=== PATIENT | female | born 1985 | race African-American/Black ===

== ENCOUNTER 2016-05-04 16:11 | Emergency (ER) | payer OTHER ==
[2016-05-04 16:24] VITALS: BP 99/60; PULSE 82; TEMP 98.7; BMI 24.3
[2016-05-04 16:45] LABS: URINE APPEARANCE CLEAR; URINE BILIRUBIN NEGATIVE (NEGATIVE); URINE COLOR LTYELLOW; URINE GLUCOSE (UA) NEGATIVE (NEGATIVE); URINE KETONE NEGATIVE (NEGATIVE); URINE NITRITE NEGATIVE (NEGATIVE); URINE PROTEIN NEGATIVE (NEGATIVE); URINE UROBILINOGEN 2.0 E.U/dl E.U./dl (0.2-1.0)
[2016-05-04 16:49] LABS: URINE BLOOD 1+ (NEGATIVE); URINE LEUK ESTERASE TRACE (NEGATIVE)
[2016-05-04 16:52] LABS: URINE MUCUS RARE; URINE RBC 24 /hpf (0-3); URINE WBC 5 /hpf (3-5)
--- NOTE | 2016-05-04 17:11 | PDOC ---
History of Present Illness - General Chief Complaint: Urinary Problem Stated Complaint: PAIN Time Seen by Provider: 05/04/16 16:42 - History of Present Illness Initial Comments: 05/04/16 17:00 CHIEF COMPLAINT: urinary problem HISTORY OF PRESENT ILLNESS: 31 yo F with hx of PE (Jan 2016, now on Coumadin) presents to ED with urinary frequency and lower back pain. Patient states that she started feeling like "I have to go a lot, but there's nothing" and that there is mild discomfort on urination. She states that "I get UTI's about twice a year, and this feels like I'm starting to have one." She denies any fever, chills, nausea, vomiting, or diarrhea. No recent travel or sick contacts. PAST MEDICAL HISTORY: PE SOCIAL HISTORY: Former smoker, quit in January after PE. Denies alcohol, illicit drug use. SURGICAL HISTORY: Denies ALLERGIES: No known drug allergies REVIEW OF SYSTEMS General/Constitutional: Denies fever or chills. Denies weakness, weight change. Cardiovascular: Denies chest pain or shortness of breath. Gastrointestinal: Denies nausea, vomiting, diarrhea or constipation. Genitourinary: Urinary frequency, vaginal itching. Musculoskeletal: Mild lower back pain. PHYSICAL EXAM General Appearance: Well-appearing, appropriately dressed. No apparent distress. Neck: No tenderness to cervical spine. Supple. Trachea midline. No tenderness, rigidity, carotid bruit, stridor, lymphadenopathy, or thyromegaly. Respiratory/Chest: Lungs CTAB. Cardiovascular: RRR. S1, S2. Gastrointestinal/Abdominal: Normal bowel sounds. Abdomen soft, non-distended. No tenderness or rebound tenderness. No organomegaly, pulsatile mass, guarding , hernia, hepatomegaly, splenomegaly. Musculoskeletal/Extremities: No CVA tenderness. No midline tenderness to thoracic or lumbar spine on palpation. Normal inspection. FROM of all extremities, normal capillary refill. Pelvis Stable. No tenderness to extremities, pedal edema, swelling, erythema or deformity. Integumentary: Appropriate color, dry, warm. No cyanosis, erythema, jaundice or rash Neurologic: concierge receptionist II-XII intact. Fully oriented, alert. Appropriate mood/affect. Motor strength 5/5. No appreciable EOM palsy, facial droop or sensory deficit. 05/04/16 17:24 Past History - Past Medical History Allergies/Adverse Reactions: Allergies Allergy/AdvReac Type Severity Reaction Status Date / Time No Known Allergies Allergy Verified 05/04/16 16:20 Home Medications: Ambulatory Orders Nitrofurantoin Monohyd/M-Cryst [Macrobid -] 100 mg PO BID #14 capsule 05/04/16 Anemia: No Asthma: No Cancer: No Cardiac Disorders: No CVA: No COPD: No CHF: No Dementia: No Diabetes: No GI Disorders: No Disorders: No HTN: No Hypercholesterolemia: No Liver Disease: No Seizures: No Thyroid Disease: No Other medical history: PE 2016 - Surgical History Abdominal Surgery: No Appendectomy: No Cardiac Surgery: No Cholecystectomy: No Lung Surgery: No Neurologic Surgery: No Orthopedic Surgery: No - Immunization History Immunization Up to Date: Yes - Psycho/Social/Smoking Cessation Hx Anxiety: No Suicidal Ideation: No Smoking History: Former smoker Have you smoked in the past 12 months: No Information on smoking cessation initiated: No Hx Alcohol Use: No Drug/Substance Use Hx: No Substance Use Type: None *Physical Exam - Vital Signs Last Vital Signs Temp Pulse Resp BP Pulse Ox 98.7 F 82 20 99/60 100 05/04/16 16:21 05/04/16 16:21 05/04/16 16:21 05/04/16 16:21 05/04/16 16:21 ED Treatment Course - ADDITIONAL ORDERS Additional order review: Laboratory Results 05/04/16 16:30 Urine Color Ltyellow Urine Appearance Clear Urine pH 7.0 Ur Specific [place] 1.023 Urine Protein Negative Urine Glucose (UA) Negative Urine Ketones Negative Urine Blood 1+ H Urine Nitrite Negative Urine Bilirubin Negative Urine Urobilinogen 2.0 e.u/dl H Ur Leukocyte Esterase Trace H Urine RBC 24 Urine WBC 5 Ur Epithelial Cells Rare Urine Mucus Rare Urine HCG, Qual Negative Medical Decision Making - Medical Decision Making 05/04/16 17:30 31 yo F with history of pulmonary embolism (on Coumadin) presents to ED with urinary frequency and mild lower back pain. -UA -Upreg Lab results: UA positive for WBC, will treat for mild, symptomatic UTI. Macrobid 100 mg bid x 7 days sent to pharmacy Advised patient to take medication as prescribed and follow up with PCP and with urologist to further investigate recurring UTIs. Advised patient of signs and symptoms for return to ER; patient verbalized understanding and agrees to plan. *DC/Admit/Observation/Transfer Diagnosis at time of Disposition: Urinary tract infection Qualifiers: Urinary tract infection type: site unspecified Hematuria presence: without hematuria Qualified Code(s): N39.0 - Urinary tract infection, site not specified - Discharge Dispostion Disposition: HOME Condition at time of disposition: Stable Admit: No - Prescriptions Prescriptions: Nitrofurantoin Monohyd/M-Cryst [Macrobid -] 100 mg PO BID #14 capsule - Referrals Referrals: Feng Gleason [Primary Care Provider] - Kenneth Banda MD [Staff Physician] - - Patient Instructions Printed Discharge Instructions: DI for Urinary Tract Infection (UTI) Additional Instructions: Please take medication as prescribed and complete the entire course of antibiotics. As discussed, please follow up with your primary care provider and /or urologist (referral provided) as necessary regarding your recurrent UTIs. If you develop fever, chills, nausea, vomiting, diarrhea, severe back pain, or any new or worsening symptoms, please return to the ER immediately.
== END 2016-05-04 17:39 | disposition home or self-care (01) ==
LOC: JERFT 16:11
DX: N39.0 Urinary tract infection, site not specified (principal); Z86.711 Personal history of pulmonary embolism; Z79.01 Long term (current) use of anticoagulants
CPT/HCPCS: 81003; 81015; 84703; 87086; 99281-25

== ENCOUNTER 2017-04-10 08:56 | Emergency (ER) | payer OTHER ==
[2017-04-10 09:08] VITALS: BMI 24.7
[2017-04-10] MEDS ORDERED: ALBUTEROL SO4 0.083% IH SOL 2.5 MG/3 ML VIAL.NEB. NEB ONE ×2 (09:39→09:43)
[2017-04-10 09:46] LABS: BASO % 1.3 % (0-2.0); EOS % 0.4 % (0-4.5); MEAN CELL VOLUME 87.9 fl (80-96); MEAN PLT VOLUME 9.7 fl (7.5-11.1); NEUT % 47.9 % (42.8-82.8); PLATELET COUNT 254 K/MM3 (134-434); RDW 14.5 % (11.6-15.6); WHITE BLOOD COUNT 2.3 K/mm3 (4.0-10.0)
--- NOTE | 2017-04-10 10:01 | PDOC ---
History of Present Illness - General Chief Complaint: Chest Pain Stated Complaint: CHEST PAIN (6 WKS ) Time Seen by Provider: 04/10/17 09:11 History Source: Patient Exam Limitations: No Limitations - History of Present Illness Initial Comments: 04/10/17 10:02 32-year-old female approximately 6 weeks presents with cough for the past 2 weeks associated with shortness of breath and midsternal chest pain which she describes a sharp and intermittent to the mid sternal region without radiation. Patient also complaining of right calf pain for the past 2 weeks which she describes a warm sensation intermittently without aggravating factors. Patient states history of PE year ago requiring her to go on anticoagulation therapy for 9 months. Patient states at that time she was smoking and on Depo-Provera injections. patient currently denies similar symptoms with PE from one year ago. Patient also denies palpitations, lower extremity swelling, nausea, dizziness, headache, fever, or chills. Patient states has a first appointment on the . Presenting Symptoms: Chest Pain, Short of Breath Timing/Duration: reports: intermittent Severity/Quality: reports: pressure, sharp Location: reports: substernal Chest Pain Radiation: reports: no radiation Activities at Onset: reports: none Prior Chest Pain/Cardiac Workup: reports: Other (pe) Aspirin Received prior to arrival (Core Measure): Yes: no aspirin today Associated Symptoms: Yes: Cough, Chest Pain/pressure, Shortness of Breath Past History - Past Medical History Allergies/Adverse Reactions: Allergies Allergy/AdvReac Type Severity Reaction Status Date / Time No Known Allergies Allergy Verified 04/10/17 09:05 Home Medications: Ambulatory Orders Clonazepam [KlonoPIN] 0.5 mg PO DAILY 03/09/17 Anemia: No Asthma: No Cancer: No Cardiac Disorders: No CVA: No COPD: No CHF: No DVT: Yes (PE) Dementia: No Diabetes: No GI Disorders: No Disorders: No HTN: No Hypercholesterolemia: No Liver Disease: No Psychiatric Problems: Yes (ANXIETY) Seizures: No Thyroid Disease: No - Surgical History Abdominal Surgery: No Appendectomy: No Cardiac Surgery: No Cholecystectomy: No Lung Surgery: No Neurologic Surgery: No Orthopedic Surgery: No - Reproductive History Is Patient Now?: Yes (#): 6 Para: 5 - Immunization History Immunization Up to Date: Yes - Suicide/Smoking/Psychosocial Hx Smoking History: Never smoked Have you smoked in the past 12 months: No Hx Alcohol Use: No Drug/Substance Use Hx: No Substance Use Type: None Patient Lives Alone: No Lives with/in: spouse/SO Cardiac Specific PMH - Complaint Specific PMHX Pacemaker: No Review of Systems - Review of Systems Able to Perform ROS?: Yes Constitutional: No: Symptoms Reported HEENTM: No: Symptoms Reported Respiratory: Yes: Cough, Shortness of Breath. No: Orthopnea, Wheezing, Hemoptysis Cardiac (ROS): Yes: Chest Pain. No: Lightheadedness ABD/GI: No: Symptoms Reported : No: Symptoms Reported Musculoskeletal: No: Symptoms Reported Integumentary: No: Symptoms Reported Neurological: No: Symptoms reported Hematologic/Lymphatic: Yes: See HPI *Physical Exam - Vital Signs Last Vital Signs Temp Pulse Resp BP Pulse Ox 98.4 F 91 H 20 101/60 99 04/10/17 14:00 04/10/17 14:00 04/10/17 14:00 04/10/17 14:00 04/10/17 14:00 - Physical Exam General Appearance: Yes: Nourished, Appropriately Dressed. No: Apparent Distress HEENT: positive: EOMI, JOSH, Normal Voice, TMs Normal, Pharynx Normal Neck: positive: Normal Thyroid, Supple Respiratory/Chest: positive: Lungs Clear, Normal Breath Sounds. negative: Chest Tender, Respiratory Distress, Accessory Muscle Use Cardiovascular: positive: Regular Rhythm, Regular Rate. negative: Murmur Gastrointestinal/Abdominal: positive: Soft. negative: Tenderness Extremity: positive: Normal Capillary Refill, Normal Inspection, Normal Range of Motion. negative: Tender, Swelling, Calf Tenderness Integumentary: positive: Normal Color, Warm, Moist Neurologic: positive: Motor Strength 5/5 Heart Score/ECG Review - History History: Slightly suspicious - Electrocardiogram EKG: Normal - Age Age: </= 45 - Risk Factors Based on the list above the patient has:: No risk factors known - Troponin Troponin: </= normal limit - Score Heart Score - Total: 0 - ECG Intrepretation Rhythm: Regular Rhythm (nsr at 77. no st elevation or depression) ED Treatment Course - LABORATORY CBC & Chemistry Diagram: 04/10/17 09:40 04/10/17 09:40 - ADDITIONAL ORDERS Additional order review: Laboratory Results 04/10/17 04/10/17 04/10/17 11:14 09:40 09:40 D-Dimer 211 Sodium 135 L Potassium 4.3 Chloride 104 Carbon Dioxide 25 Anion Gap 6 L BUN 12 D Creatinine 0.5 L Creat Clearance w eGFR > 60 Random Glucose 81 Calcium 8.6 Total Bilirubin 0.7 D AST 37 ALT 43 Alkaline Phosphatase 63 Creatine Kinase 86 Troponin I < 0.02 Total Protein 8.6 H Albumin 3.9 Urine Color Yellow Urine Appearance Cloudy Urine pH 6.0 Ur Specific [place] 1.019 Urine Protein Negative Urine Glucose (UA) Negative Urine Ketones Negative Urine Blood Negative Urine Nitrite Negative Urine Bilirubin Negative Urine Urobilinogen Negative Ur Leukocyte Esterase Negative 04/10/17 09:40 D-Dimer Cancelled Sodium Potassium Chloride Carbon Dioxide Anion Gap BUN Creatinine Creat Clearance w eGFR Random Glucose Calcium Total Bilirubin AST ALT Alkaline Phosphatase Creatine Kinase Troponin I Total Protein Albumin Urine Color Urine Appearance Urine pH Ur Specific [place] Urine Protein Urine Glucose (UA) Urine Ketones Urine Blood Urine Nitrite Urine Bilirubin Urine Urobilinogen Ur Leukocyte Esterase 04/10/17 09:40 RBC 3.86 MCV 87.9 MCHC 33.0 RDW 14.5 MPV 9.7 Neutrophils % 47.9 D Lymphocytes % 35.2 D Monocytes % 15.2 H Eosinophils % 0.4 Basophils % 1.3 - RADIOLOGY Radiology Studies Ordered: Category Date Time Status CHEST CTA [CT] Stat CT Scan 04/10/17 13:03 Completed CHEST X-RAY PORTABLE* [RAD] Stat Radiology 04/10/17 09:38 Completed DUPLEX VASCUL US-1 LEG [US] Stat Ultrasound 04/10/17 09:39 Completed - Medications Given in the ED: ED Medications Discontinued Medications Generic Name Dose Route Start Last Admin Trade Name Freq PRN Reason Stop Dose Admin Albuterol Sulfate 1 amp 04/10/17 09:39 04/10/17 09:51 Ventolin 0.083% Nebulizer Soln - NEB 04/10/17 09:40 1 amp ONCE ONE Administration Medical Decision Making - Medical Decision Making 04/10/17 10:00 Patient with complaints of cough, shortness of breath, and chest pain associated with right calf pain. Due to patient's recent history of PE along with her current at 6 weeks patient will have PE workup including cardiac workup, duplex of the right lower extremity, and chest x-ray to rule out pneumonia. Patient understands the risks to secondary to x-ray and possible VQ scan 04/10/17 10:49 Laboratory Tests 03/09/17 04/10/17 08:00 09:40 WBC 2.2 L 2.3 L Hgb 11.2 Hct 33.9 Plt Count 254 Monocytes % 15.2 H Chest xray -. Pt pending labs 04/10/17 11:29 Duplex of the right lower extremity negative for DVT. 04/10/17 11:29 Laboratory Tests 04/10/17 09:40 Sodium 135 L Potassium 4.3 Chloride 104 Carbon Dioxide 25 Anion Gap 6 L BUN 12 D Creatinine 0.5 L Creat Clearance w eGFR > 60 Random Glucose 81 Calcium 8.6 Total Bilirubin 0.7 D AST 37 ALT 43 Alkaline Phosphatase 63 Creatine Kinase 86 Troponin I < 0.02 Total Protein 8.6 H Albumin 3.9 04/10/17 13:06 Secondary to patient's recent PE history and current . Patient ordered for chest CTA. I've explained the risks and benefits with the patient at the time agrees for CAT scan. 04/10/17 15:17 No evidence of PE or acute pathology within the chest. Patient will be discharged home with recommendations to take amoxicillin as prescribed by her PCP yesterday. Selected Entries 04/10/17 14:00 Temperature 98.4 F Pulse Rate [ 91 H Radial] Respiratory Non-Labored Effort Blood Pressure 101/60 [Left Arm] O2 Sat by Pulse 99 Oximetry (%) Laboratory Tests 04/10/17 04/10/17 09:40 11:14 D-Dimer 211 Ur Leukocyte Esterase Negative *DC/Admit/Observation/Transfer Diagnosis at time of Disposition: Cough, Chest pain - Discharge Dispostion Disposition: HOME Condition at time of disposition: Good - Referrals Referrals: Feng Gleason [Primary Care Provider] - - Patient Instructions Printed Discharge Instructions: DI for Cough -- Adult, DI for Atypical Chest Pain Additional Instructions: At this time your workup shows no acute findings including a pulmonary embolism. I do recommend you take amoxicillin as previously prescribed by your PCP. If symptoms worsen please return to the nearest ED - Post Discharge Activity Forms/Work/School Notes: Back to Work
[2017-04-10 10:16] LABS: ALBUMIN 3.9 g/dl (3.4-5.0); ANION GAP 6 (8-16); BILIRUBIN,TOTAL 0.7 mg/dL (0.2-1.0); CALCIUM 8.6 mg/dL (8.5-10.1); CO2 25 mmol/L (21-32); CREATININE 0.5 mg/dL (0.55-1.02); GLUCOSE,RANDOM 81 mg/dL (74-106); TOT PROT 8.6 g/dl (6.4-8.2)
[2017-04-10 10:52] LABS: ALK PHOS 63 U/L (45-117); SGPT/ALT 43 U/L (12-78); TROPONIN I < 0.02 ng/ml (0.00-0.05)
[2017-04-10 10:54] LABS: CPK 86 IU/L (26-192); SGOT/AST 37 U/L (15-37)
[2017-04-10 11:37] LABS: URINE APPEARANCE CLOUDY; URINE BILIRUBIN NEGATIVE (NEGATIVE); URINE BLOOD NEGATIVE (NEGATIVE); URINE COLOR YELLOW; URINE GLUCOSE (UA) NEGATIVE (NEGATIVE); URINE KETONE NEGATIVE (NEGATIVE); URINE LEUK ESTERASE NEGATIVE (NEGATIVE); URINE NITRITE NEGATIVE (NEGATIVE); URINE PROTEIN NEGATIVE (NEGATIVE); URINE UROBILINOGEN NEGATIVE mg/dL (0.2-1.0)
[2017-04-10 14:45] VITALS: BP 101/60; PULSE 91; TEMP 98.4
[2017-04-10 14:45] LABS: URINE LEUK ESTERASE Negative (NEGATIVE)
--- NOTE | 2017-04-10 21:14 | EKG ---
Test Reason : Blood Pressure : / mmHG Vent. Rate : 077 BPM Atrial Rate : 077 BPM P-R Int : 154 ms QRS Dur : 084 ms QT Int : 354 ms P-R-T Axes : 054 010 027 degrees QTc Int : 400 ms NORMAL SINUS RHYTHM NORMAL ECG WHEN COMPARED WITH ECG OF 09-MAR-2017 07:58, NO SIGNIFICANT CHANGE WAS FOUND Confirmed by MD RADHA, GEO ([id number]) on 04/10/2017 9:13:49 PM Referred By: Confirmed By:GEO GARCIA MD
== END 2017-04-10 15:34 | disposition home or self-care (01) ==
LOC: JER 08:56
PROC: 3E0F7GC Introduction of Other Therapeutic Substance into Respiratory Tract, Via Natural or Artificial Opening (ICD-10-PCS; principal; 2017-04-10)
DX: R05 Cough (principal); R07.9 Chest pain, unspecified
CPT/HCPCS: 36415; 71010-TC; 71275-TC; 80053; 81003; 82550; 84484; 85025; 85379; 93005; 93010; 93971-TC; 94640; 99284-25

== ENCOUNTER 2017-06-11 12:01 | Emergency (ER) | payer OTHER ==
[2017-06-11 12:39] VITALS: BP 102/51; TEMP 98.2; BMI 22.7
--- NOTE | 2017-06-11 13:19 | PDOC ---
History of Present Illness - General History Source: Patient Exam Limitations: No Limitations - History of Present Illness Initial Comments: 06/11/17 17:29 The patient is a 32 year old female who is 15 weeks with a significant PMH of anxiety (previously on Klonopin) and past PE (on Heparin BID, reports compliance) who presents to the emergency department with a gas-like sensation in her chest that is worse after eating. She reports having a normal appetite but is hesitant to eat due to her symptoms. She reports using Tums and Gas-X to minimal relief. She reports being taken off of Klonopin about 3 days ago due to her and has been having some feelings of anxiety but has been using deep breathing to cope. The patient denies any vaginal bleeding or discharge. She denies abdominal or pelvic pain. The patient denies shortness of breath, headache and dizziness. Denies fever, chills, nausea, vomit, diarrhea and constipation. Denies dysuria, frequency, urgency and hematuria. Denies headache, weakness, numbness Allergies: NKA Past surgical history: None reported. Social history: No reported cigarette, alcohol, or drug use. PCP: Dr. Feng Gleason REHAB MANAGER: Dr. Dent <Edvin Gallo - Last Filed: 06/11/17 17:52> <Sherrie Balderas - Last Filed: 06/11/17 19:18> - General Chief Complaint: Chest Pain Stated Complaint: CHEST PAIN, ANXIETY Time Seen by Provider: 06/11/17 13:19 Past History <Edvin Gallo - Last Filed: 06/11/17 17:52> - Past Medical History Anemia: No Asthma: No Cancer: No Cardiac Disorders: No CVA: No COPD: No CHF: No DVT: Yes (PE) Dementia: No Diabetes: No GI Disorders: No Disorders: No HTN: No Hypercholesterolemia: No Liver Disease: No Psychiatric Problems: Yes (ANXIETY) Seizures: No Thyroid Disease: No - Surgical History Abdominal Surgery: No Appendectomy: No Cardiac Surgery: No Cholecystectomy: No Lung Surgery: No Neurologic Surgery: No Orthopedic Surgery: No - Reproductive History (#): 6 Para: 5 - Immunization History Immunization Up to Date: Yes - Suicide/Smoking/Psychosocial Hx Smoking History: Never smoked Have you smoked in the past 12 months: No Information on smoking cessation initiated: No Hx Alcohol Use: No Drug/Substance Use Hx: No Substance Use Type: None <Sherrie Balderas - Last Filed: 06/11/17 19:18> - Past Medical History Allergies/Adverse Reactions: Allergies Allergy/AdvReac Type Severity Reaction Status Date / Time No Known Allergies Allergy Verified 04/10/17 09:05 Home Medications: Ambulatory Orders clonazePAM [KlonoPIN] 0.5 mg PO DAILY 03/09/17 Ranitidine HCl 150 mg PO BID #14 tablet 06/11/17 Review of Systems - Review of Systems Able to Perform ROS?: Yes Comments:: 06/11/17 17:30 GENERAL/CONSTITUTIONAL: No fever or chills. No weakness. HEAD, EYES, EARS, NOSE AND THROAT: No change in vision. No ear pain or discharge. No sore throat. GASTROINTESTINAL: (+) Gas like sensation in chest. No nausea, vomiting, diarrhea or constipation. GENITOURINARY: No dysuria, frequency, or change in urination. CARDIOVASCULAR: No chest pain or shortness of breath. RESPIRATORY: No cough, wheezing, or hemoptysis. MUSCULOSKELETAL: No joint or muscle swelling or pain. No neck or back pain. SKIN: No rash NEUROLOGIC: No headache, vertigo, loss of consciousness, or change in strength/ sensation. ENDOCRINE: No increased thirst. No abnormal weight change. HEMATOLOGIC/LYMPHATIC: No anemia, easy bleeding, or history of blood clots. ALLERGIC/IMMUNOLOGIC: No hives or skin allergy. <Edvin Gallo - Last Filed: 06/11/17 17:52> *Physical Exam - Vital Signs Last Vital Signs Temp Pulse Resp BP Pulse Ox 98.2 F 78 20 102/51 98 06/11/17 12:35 06/11/17 14:20 06/11/17 12:35 06/11/17 12:35 06/11/17 14:20 - Physical Exam Comments: 06/11/17 17:30 GENERAL: Awake, alert, and fully oriented, in no acute distress HEAD: No signs of trauma EYES: PERRLA, EOMI, sclera anicteric, conjunctiva clear ENT: Auricles normal inspection, hearing grossly normal, nares patent, oropharynx clear without exudates. Moist mucosa NECK: Normal ROM, supple, no lymphadenopathy, JVD, or masses LUNGS: Breath sounds equal, clear to auscultation bilaterally. No wheezes, and no crackles HEART: Regular rate and rhythm, normal S1 and S2, no murmurs, rubs or gallops ABDOMEN: Soft, nontender, normoactive bowel sounds. No guarding, no rebound. No masses EXTREMITIES: Normal range of motion, no edema. No clubbing or cyanosis. No cords , erythema, or tenderness BACK: No midline spinal tenderness in cervical/thoracic/lumbar region NEUROLOGICAL: Normal speech, cranial nerves intact, negative pronator drift, 5/ 5 strength in all 4 extremities, normal sensation to light touch in all 4 extremities, normal cerebellar exam, normal gait, normal reflexes and tone SKIN: Warm, Dry, normal turgor, no rashes or lesions noted. <dEvin Gallo - Last Filed: 06/11/17 17:52> - Vital Signs Last Vital Signs Temp Pulse Resp BP Pulse Ox 98.2 F 89 20 102/51 100 06/11/17 12:35 06/11/17 12:35 06/11/17 12:35 06/11/17 12:35 06/11/17 12:35 <Sherrie Balderas - Last Filed: 06/11/17 19:18> Heart Score/ECG Review #1 06/11/17 19:16 Twelve-lead EKG was performed and reviewed by me. Normal sinus rhythm, rate 90. Normal axis and intervals. No ST elevations or T-wave wave inversions <Sherrie Balderas - Last Filed: 06/11/17 19:18> ED Treatment Course - LABORATORY CBC & Chemistry Diagram: 06/11/17 16:13 06/11/17 16:13 - ADDITIONAL ORDERS Additional order review: Laboratory Results 06/11/17 06/11/17 16:13 16:12 Sodium 137 Potassium 4.0 Chloride 106 Carbon Dioxide 23 Anion Gap 8 BUN 11 Creatinine 0.5 L Creat Clearance w eGFR > 60 Random Glucose 70 L Calcium 8.2 L Total Bilirubin 0.5 D AST 21 ALT 32 Alkaline Phosphatase 62 Total Protein 7.7 Albumin 3.4 Lipase 119 Urine Color Yellow Urine Appearance Cloudy Urine pH 7.0 Ur Specific [place] 1.019 Urine Protein Negative Urine Glucose (UA) Negative Urine Ketones Negative Urine Blood Negative Urine Nitrite Negative Urine Bilirubin Negative Urine Urobilinogen Negative Ur Leukocyte Esterase Trace Urine WBC (Auto) 2 Urine RBC (Auto) 2 Ur Epithelial Cells Many Urine Bacteria Rare Urine Mucus Few 06/11/17 16:13 RBC 3.30 L MCV 91.9 MCHC 33.4 RDW 14.2 MPV 9.1 Neutrophils % 66.6 D Lymphocytes % 22.0 D Monocytes % 9.7 Eosinophils % 1.0 D Basophils % 0.7 - Medications Given in the ED: ED Medications Discontinued Medications Generic Name Dose Route Start Last Admin Trade Name Martir PRN Reason Stop Dose Admin Famotidine/Sodium Chloride 20 mg in 50 mls @ 100 mls/hr 06/11/17 15:38 16:33 Pepcid 20 Mg Premixed Ivpb - IVPB 06/11/17 16:07 100 mls/hr ONCE ONE Administration Sodium Chloride 1,000 ml 06/11/17 15:38 06/11/17 16:33 Normal Saline - IV 06/11/17 15:39 1,000 ml ONCE ONE Administration <Edvin Gallo - Last Filed: 06/11/17 17:52> - LABORATORY CBC & Chemistry Diagram: 06/11/17 16:13 06/11/17 16:13 <Sherrie Balderas - Last Filed: 06/11/17 19:18> Medical Decision Making - Medical Decision Making 06/11/17 17:[address] Dee (covering for Dr. Dent) regarding this patient. <Edvin Gallo - Last Filed: 06/11/17 17:52> - Medical Decision Making 06/11/17 15:41 32-year-old female approximately 15 wks (followed by Dr. Dent), PE on heparin BID (compliant) presents to the emergency Department with gas-like burning sensation in the chest that's worse with food. Denies CP. Reports this does not feel like her previous PE sxs. Patient reports trying Tums and Gas-X with minimal improvement. Vitals unremarkable. Exam within normal limits. EKG is nonischemic. Symptoms likely secondary to gastroesophageal reflux versus pancreatitis versus gastritis. We'll check labs, UA, provide symptomatic control and reassess. 06/11/17 19:04 Labs within normal limits, urinalysis negative for infection. Patient reports improvement in her symptoms after Pepcid. Symptoms likely related to indigestion. 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 All results discussed with patient who requests discharge home. I discussed the physical exam findings, ancillary test results and final diagnoses with the patient. I answered all of the patient's questions. The patient was satisfied with the care received and felt comfortable with the discharge plan and treatment plan. The patient will call their primary care physician within 24 hours to arrange follow-up and will return to the Emergency Department with any new, persistent or worsening symptoms. <Sherrie Balderas - Last Filed: 06/11/17 19:18> *DC/Admit/Observation/Transfer - Attestations Scribe Attestion: 06/11/17 17:30 Documentation prepared by Edvin Gallo, acting as medical operations supervisor for Sherrie Balderas MD. <Edvin Gallo - Last Filed: 06/11/17 17:52> - Discharge Dispostion Admit: No - Attestations Physician Attestion: 06/11/17 19:06 I, Dr. Sherrie Balderas MD, attest that this document has been prepared under my direction and personally reviewed by me in its entirety. I further attest, that it accurately reflects all work, treatment, procedures and medical decision -making performed by me. <Sherrie Balderas - Last Filed: 06/11/17 19:18> Diagnosis at time of Disposition: GERD (gastroesophageal reflux disease) - Discharge Dispostion Disposition: HOME Condition at time of disposition: Stable - Prescriptions Prescriptions: Ranitidine HCl 150 mg PO BID #14 tablet - Referrals Referrals: Feng Gleason [Primary Care Provider] - - Patient Instructions Printed Discharge Instructions: DI for Gastroesophageal Reflux Disease (GERD) Additional Instructions: Take Ranitidine as needed for indigestion. Follow-up with your primary care doctor within 1-2 days. Follow-up with your OB doctor within 1 week. Return to the emergency department if you have any new, worsening or concerning symptoms. - Post Discharge Activity
[2017-06-11 14:25] VITALS: PULSE 78
[2017-06-11] MEDS ORDERED: FAMOTIDINE 20 MG/50 ML IVPB 20 MG/50 ML MG IVPB ONE ×2 (15:38→17:47)
[2017-06-11] MEDS ORDERED: SODIUM CHLORIDE 0.9% 500 ML INFUS.BAG IV ONE (15:38)
[2017-06-11 16:27] LABS: BASO % 0.7 % (0-2.0); HEMATOCRIT 30.3 % (32.4-45.2); HEMOGLOBIN 10.1 GM/dL (10.7-15.3); MCH 30.7 pg (25.7-33.7); MCHC 33.4 g/dl (32.0-36.0); MEAN CELL VOLUME 91.9 fl (80-96); MEAN PLT VOLUME 9.1 fl (7.5-11.1); MONO % 9.7 % (3.8-10.2); NEUT % 66.6 % (42.8-82.8); PLATELET COUNT 268 K/MM3 (134-434); RDW 14.2 % (11.6-15.6); WHITE BLOOD COUNT 3.6 K/mm3 (4.0-10.0)
[2017-06-11 17:09] LABS: URINE APPEARANCE CLOUDY; URINE BILIRUBIN NEGATIVE (NEGATIVE); URINE BLOOD NEGATIVE (NEGATIVE); URINE COLOR YELLOW; URINE GLUCOSE (UA) NEGATIVE (NEGATIVE); URINE KETONE NEGATIVE (NEGATIVE); URINE LEUK ESTERASE TRACE (NEGATIVE); URINE NITRITE NEGATIVE (NEGATIVE); URINE PROTEIN NEGATIVE (NEGATIVE); URINE UROBILINOGEN NEGATIVE mg/dL (0.2-1.0)
[2017-06-11 17:16] LABS: ALBUMIN 3.4 g/dl (3.4-5.0); ANION GAP 8 (8-16); BILIRUBIN,TOTAL 0.5 mg/dL (0.2-1.0); BLOOD UREA NITROGEN 11 mg/dL (7-18); CALCIUM 8.2 mg/dL (8.5-10.1); CHLORIDE 106 mmol/L (98-107); CO2 23 mmol/L (21-32); CREATININE 0.5 mg/dL (0.55-1.02); GLUCOSE,RANDOM 70 mg/dL (74-106); LIPASE 119 U/L (73-393); SGOT/AST 21 U/L (15-37); SGPT/ALT 32 U/L (12-78); SODIUM 137 mmol/L (136-145); TOT PROT 7.7 g/dl (6.4-8.2)
[2017-06-11 17:17] LABS: ALK PHOS 62 U/L (45-117)
[2017-06-11 17:19] LABS: EPI CELLS MANY /HPF (FEW); URINE BACTERIA RARE /hpf (NONE SEEN); URINE MUCUS FEW
[2017-06-11] MEDS ORDERED: ACETAMINOPHEN 325 MG TABLET (FP) ONE (17:47)
[2017-06-11] MEDS ORDERED: RANITIDINE HCL 150 MG TABLET (FP) PO ONE (19:07)
[2017-06-11] MEDS ORDERED: RANITIDINE HCL 150 MG TABLET (FP) ONE (19:19)
--- NOTE | 2017-06-13 17:11 | EKG ---
Test Reason : Blood Pressure : / mmHG Vent. Rate : 090 BPM Atrial Rate : 090 BPM P-R Int : 148 ms QRS Dur : 088 ms QT Int : 342 ms P-R-T Axes : 052 009 038 degrees QTc Int : 418 ms NORMAL SINUS RHYTHM NORMAL ECG WHEN COMPARED WITH ECG OF 10-APR-2017 09:03, NO SIGNIFICANT CHANGE WAS FOUND Confirmed by BERNABE NAVARRO MD ([id number]) on 06/13/2017 5:11:13 PM Referred By: Confirmed By:BERNABE NAVARRO MD
== END 2017-06-11 19:16 | disposition home or self-care (01) ==
LOC: JER 12:01
PROC: 3E033GC Introduction of Other Therapeutic Substance into Peripheral Vein, Percutaneous Approach (ICD-10-PCS; principal; 2017-06-11)
DX: O26.892 Other specified pregnancy related conditions, second trimester (principal); O99.62 Diseases of the digestive system complicating childbirth; K21.9 Gastro-esophageal reflux disease without esophagitis; Z3A.15 15 weeks gestation of pregnancy; F41.9 Anxiety disorder, unspecified; Z86.711 Personal history of pulmonary embolism; Z79.01 Long term (current) use of anticoagulants
CPT/HCPCS: 36415; 80053; 81003; 81015; 83690; 85025; 87086; 87186; 93005; 93010; 96365; 99284-25